=== PATIENT | male | born 2000 | race Caucasian/White ===

== ENCOUNTER 2020-07-02 06:13 | Inpatient (IN) ==
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
[2020-07-02 07:06] LABS: Hematocrit (blood only) 41.9 % (42-52); Hemoglobin 14.6 g/dL (14.0-18.0); Mean Corpuscular Hemoglobin 29.7 pg (25-34); Mean Corpuscular Hgb Conc 34.8 g/dL (32-36); Mean Corpuscular Volume 85.3 fL (80-100); Mean Platelet Volume 11.6 fL (7.4-10.4); Platelet Count 292 K/uL (130-400); RDW Coefficient of Variation 13.4 % (11.5-14.5); RDW Standard Deviation 41.9 fL (36.4-46.3); Red Blood Count 4.91 M/uL (4.7-6.1); White Blood Count 25.05 K/uL (4.8-10.8)
[2020-07-02 07:23] LABS: Albumin Level 4.1 gm/dl (3.4-5.0); BUN Creatinine Ratio 8.1 (10-20); Calcium 8.9 mg/dl (8.5-10.1); Creatinine Clr Calc Pharmacy 106.3 ml/min; Est GFR (African American) 100.3; Est GFR (Non-African American) 86.5; Potassium 3.6 mmol/L (3.5-5.1)
[2020-07-02 07:33] LABS: Albumin Globulin Ratio 1.2 (0.9-2); Bilirubin,Total 0.3 mg/dl (0.2-1); Globulin 3.3 gm/dl (2.5-4.0); Thyroid Stimulating Hormone 4.79 uIu/ml (0.300-4.500); Total Protein 7.4 gm/dl (6.4-8.2)
[2020-07-02 07:34] LABS: Basophils # (auto) 0.04 K/uL (0-0.2); Basophils % (auto) 0.2 %; Eosinophils # (auto) 0.05 K/uL (0-0.5); Eosinophils % (auto) 0.2 %; Immature Granulocytes # (auto) 0.08 K/uL (0.00-0.02); Immature Granulocytes % (auto) 0.3 %; Lymphocytes # (auto) 2.82 K/uL (1.2-3.4); Lymphocytes % (auto) 11.3 %; Monocytes # (auto) 1.91 K/uL (0.11-0.59); Monocytes % (auto) 7.6 %; Neutrophils # (auto) 20.15 K/uL (1.4-6.5); Neutrophils % (auto) 80.4 %
[2020-07-02 07:49] LABS: T4 Free Thyroxine 1.13 ng/dl (0.8-1.6)
[2020-07-02 08:15] LABS: Acetaminophen < 2 ug/ml (10-30); Salicylate < 1.7 mg/dl (2.8-20)
[2020-07-02 08:19] LABS: Appearance Urine Clear (Clear); Bilirubin Urine Negative (Negative); Blood Urine Negative (Negative); Color Urine Yellow; Glucose Urine UA Negative (Negative); Ketones Urine Negative (Negative); Leukocyte Esterase Urine Negative (Negative); Nitrite Urine Negative (Negative); Protein Urine Negative (Negative); Specific Gravity Urine 1.008 (1.000-1.030); Urobilinogen Urine Negative (Negative); pH Urine 6.5 (4.5-7.5)
[2020-07-02 08:36] LABS: Amphetamines+Metham, Urine Neg (Neg); Barbiturates, Urine Neg (Neg); Benzodiazepine, Urine Neg (Neg); Cocaine, Urine Neg (Neg); MDMA (Ecstacy), Urine Neg (Neg); Methadone, Urine Neg (Neg); Opiate, Urine Neg (Neg); Phencyclidine, Urine Neg (Neg)
[2020-07-02] MEDS ORDERED: MAGNESIUM HYDROXIDE SUSP 30 ML UDC PO PRN (14:40)
[2020-07-02] MEDS ORDERED: ACETAMINOPHEN 325 MG TAB PO PRN (14:40)
[2020-07-02] MEDS ORDERED: ALUMINUM/MAGNESIUM SUSP 30 ML UDC PO PRN (14:40)
[2020-07-02] MEDS ORDERED: BISMUTH SUBSALICYLATE LIQD 236 ML PO PRN (14:40)
[2020-07-02] MEDS ORDERED: hydrOXYzine HCl 25 MG TAB PO PRN ×2 (14:40)
[2020-07-02] MEDS ORDERED: SODIUM CHLORIDE 0.65% NA SOLN 45 ML (OCEAN) PRN (14:40)
--- NOTE | 2020-07-02 14:49 | History & Physical ---
Date of Service July 02, 2020 Impression / Recommendations Impression 20-year-old male admitted involuntarily on 07/02/2020 for inpatient psychiatric treatment after presenting to the ED via ambulance due to worsening depression and SI. Although the event prior to admission (patient had grabbed a pair of scissors while in front of friends and threatened to use them to kill himself), occurred while he was intoxicated - collateral information from mother suggested that the patient's depressive symptoms have been worsening and patient has been making suicidal statements over the past several months when sober as well. Pt has no psychiatric providers and had been unwilling to participate in outpatient treatment to target these concerns. Pt admits that he has been struggling with worsening depression, more significant in the past 1-2 years. He admits to daily SI, thoughts of "I want to end my life." He admits to willingness for an SSRI trial and was provided with information on sertraline and fluoxetine for his review - with patient requesting time to consider his options. Pt continues to endorse active SI and continues to be at acute risk of suicide if he is discharged prematurely. Dr. Chuck Castelan was directly involved in review and discussion of the patient's case and participated in medical decision making regarding treatment recommendations. (1) Suicidal ideations: 07/02 - Admitted to a locked inpatient behavioral health unit, on q15 minute safety checks - Encourage medication initiation/adjustments as indicated - Encourage participation in group and recreational therapies - Gather collateral information from outpatient providers - Suggest family meeting to involve outpatient supports in safety planning - Arrange appropriate aftercare (2) Depression: 07/02 - Symptoms reported by patient at this time seem most consistent with major depressive disorder. Differential includes substance-induced mood disorder, dysthymia, or possible bipolar disorder (only previous medication trial was a mood stabilization agent). Will continue to gather information from patient and outside supports - Pt was offered a trial of an SSRI to target depressive symptoms - sertraline and fluoxetine were reviewed and patient requested additional information before deciding on an agent. He was provided with patient education handouts and is agreeing to follow-up with a provider tomorrow. - Encourage engagement in group programming and assist with development of healthy and effective coping strategies - Pt will need a family meeting, likely involving his mother Depression Type: major depressive disorder Major depression recurrence: recurrent Active/Remission status: currently active Major depression episode severity: severe Psychotic features: without psychotic features Qualified Code(s): F33.2 - Major depressive disorder, recurrent severe without psychotic features (3) Cannabis abuse: 07/02 - Reporting use of marijuana several times a day - Consider outpatient D&A counseling Risk Factors Assessment Do You Have Access To A Gun?: No Protective Factors Assessment Employed: No Psychiatric History Identifying Data ANH PADILLA is a 20-year-old M who currently lives in [place] with roommates, family is from [place]. Pt has a history of depression, and was admitted on 07/02/2020 on a 302 involuntary commitment for worsening depression and suicidality. Chief Complaint "Um, I had scissors and told my friends I was going to slit my throat. I guess that's what happened." History of Present Illness Anh Padilla (DJ) is a 20-year-old male admitted involuntarily for inpatient psychiatric treatment on 07/02/2020 after being brought to the ED by EMS on a 302 warrant. Police were reportedly called to the patient's apartment after the patient had grabbed a pair of scissors and threatened to his friends that he would use them to slit his throat and end his life. ED documentation suggests the friends had gotten into an argument prior to these actions, and there was alcohol use involved. Pt's tox screen was positive for THC and his BAL was 194 on presentation, so patient was held in the ED until deemed clinically sober so that further evaluation could be completed and collateral information could be obtained. Mother provided reports of significant depression since "middle school" and admitted that patient is frequently reporting suicidal ideation, even when not intoxicated. She did not feel he was safe to be discharged. At time of mental health evaluation, the patient was continuing to endorse suicidal ideation and due to limited cooperation the 302 was reportedly upheld. 302 petitioning statement was completed by police and reads: "Patient had argument with friends and he felt that he wasn't wanted. Battles with history of depression. Patient felt like he did not want to live anymore. Patient grabbed a pair of scissors and told them he was going to kill himself. 911 was called. Officers arrived on scene and friends had male pinned to the floor. Male was hand cuffed. Told Officers to kill him and he wanted to . Male stated he had past history of suicide attempts and refused medication recommended by therapist. Males actions were violent and he appeared to have full intent to harm himself." Upon psychiatric evaluation, patient is very resistant to engage in conversation and appears very flat. Pt was observed to be laying in bed, and although he removed the blanket from his face he did not make eye contact. This provider attempted to ask questions for nearly 5 minutes before patient verbalized any audible response. Pt eventually was more willing to participate in conversation, and reported "Um, I had scissors and told my friends I was going to slit my throat. I guess that's what happened." Pt admitted that he had been drinking, but reported "I don't think it was so much the alcohol, I really felt like I wanted to hurt myself." Pt admits to increased depressive symptoms over the past 1-2 years, and states suicidal thoughts occur daily if not multiple times a day. We discussed the spectrum between passive and active thoughts, and patient was asked to describe the dialogue - "like, 'I want to end my life' thoughts." He admits that these thoughts can be triggered by difficult situations, but also "just pop up out of nowhere sometimes." The patient denies previous suicide attempts or acts of furtherance before last evening's events, but states he has a persistent plan to obtain "pain killers in combination with alcohol and benzodiazepines" to end his life. Pt denies immediate access to these substances, but states "I know how to get them." Pt reports persistently depressed mood, generally consistent for "weeks to months at a time." Depressive symptoms include: poor motivation, increased sleep, "negative thought loops", decreased appetite, anhedonia, and feeling "empty". The patient admits to a history of "really bad social anxiety", but feels that it is "not as bad as it used to be." Pt denies feeling the need to avoid leaving his apartment of other avoidance behaviors. Pt reports a history of panic attacks, but "none for years." Pt denies auditory/visual hallucinations, but does iden tify with "paranoia". He states "it feels like my friends are out to get me sometimes." He states this has only been a feeling more recently, and he does not elaborate on why this may be. Pt denies unhealthy eating behaviors, but does state "my mom thinks I have body dysmorphia". Pt, himself, feels he has "poor eating routine", but feels this is related primarily to his depressed mood. Pt admits to daily marijuana use and "binge drinking on weekends." He admits to an underage drinking charge from last fall. Pt reports a current significant stressor is that he was unable to enroll in classes for this semester due to a miscommunication regarding his remediation class related to the underage charge. Pt states that he withdrew from last semester due to mental health concerns, and was told he could complete the assignments with his outpatient therapist - but the [facility] did not accept the letter "and my account was flagged and I couldn't sign up for classes." Pt states that he is willing to discuss medications that could improve his mood, but is interested in reviewing information before making a decision. Past Psychiatric History Current Psychiatric Diagnosis: MDD Outpatient Services: Pt had been participating with individual therapy this summer in [place]. Previous Psych Admissions: None Do You Have Access To A Gun?: No History of Previous Suicide Attempt: No Describe Attempts in the Past: Denies Past Medication Trials: Per patient report, only previous medication trial was 1-2 month titration of lamotrigine. Medication was discontinued by the patient due to reports in caused him to feel "numb." Past Head Trauma/Neuro History History of Concussion/Seizure: No Allergies Allergy/AdvReac Type Severity Reaction Status Date / Time CAT DANDER Allergy Intermediate ITCHY Uncoded 07/02/20 06:47 EYES, SNEEZING, CONGESTION HAYFEVER Allergy Intermediate ITCHY Uncoded 07/02/20 06:47 EYES, SNEEZING, CONGESTION Home Medications Medication Instructions Recorded Confirmed Type No Known Home Medications 07/02/20 07/02/20 History Family History Family History of: Depression (on paternal side of family), Alcoholism/Drug Abuse ("my whole family is alcoholics, on both sides") and Suicide Completion (maternal great uncle, "maybe others, I don't know") Alcohol History Hx of Alcohol Use Over the Past 12 Months: Yes (4x weekly) Pt admits to binge drinking, generally only on the weekends. He endorses consuming 8-10 beers a night on days he partakes. Pt states this amount is sufficient to cause him to feel "drunk." He admits to receiving an underage drinking charge last Fall. Smoking Use tobacco type: cigarettes and e-cigarettes Smoking Status: Current every day smoker (unable to quantify amount ) Substance History Hx of Prescription Med Misuse Over the Past 12 Months: No Hx of Over the Counter Med Misuse Over the Past 12 Months: No Hx of Inhalent Misuse Over the Past 12 Months: No Hx of Organic Substance Use Over the Past 12 Months: Yes (Daily) Hx of Illegal Substances/Street Drug Use Over Past 12 Months: No Problems as a Result of Past Substance Use: None Identified Pt admits to daily marijuana use, often several times a day. Denies routine use of other substances, but admits to experimentation in the past with Adderall, Xanax, Oxycodone, LSD, and PCP. Personal History Living Arrangements: Apartment Living Arrangements Comments: Resides in [place] when not on campus Highest Grade Completed: Some College Employment Status: Unemployed (un-enrolled in classes at this time as well) Marital Status: Single Number Of Children: None Beliefs That Will Affect Care: None Current Legal Problems: Yes Legal Problems Comment: Underage drinking - still has to complete remediation course through [employer] Hx Traumatic Life Events: No Patient History Social History Smoking Status: Current every day smoker (unable to quantify amount ) Preferred Language: Faroese Communication Ability: Effective Scheduler Required: No Beliefs That Will Affect Care: None Feels Safe at Home: Yes Assistive Devices: None Review of Systems Review of Systems: Constitutional: denied Cardiovascular: denied Respiratory: denied Gastrointestinal: denied Neurological: denied Psychiatric: denies symptoms other than stated above Total of at least 10 systems reviewed, pertinent positives as above and in HPI. Physical Exam Psychiatric: Orientation: alert, oriented x 3 and + guarded (only superficially cooperative ) Apperance: appropriately dressed, appropriately groomed and appeared stated age Thin-appearing male, laying in bed initially with blanket covering his face. Pt is appropriately dressed for setting, wearing scrubs from the ED. His hair appears mildly unkempt. Overall level of grooming seems adequate. Eye Contact: + poor eye contact (eyes either closed or directed toward ceiling for most of interview) Motor Behavior: no abnormal motor movements (observed while laying in bed) Speech: normal rate/rhythm/volume of speech (though offering rather brief repsonses to questions) Affect: + depressed affect, + flat affect and mood congruent with affect Mood: + depressed mood; no anxious mood Thought Process: goal directed thought process and thought association intact Thought Content: + cognitive distortions, + hopelessness and + worthlessness Suicidal Thoughts: + reports suicidal thoughts Homicidal Thoughts: denies homicidal thoughts Hallucinations: no auditory hallucinations and no visual hallucinations Cognition: recent memory grossly intact, attention grossly intact and language grossly intact Estimated Intelligence: consistent with education level Insight: + impaired insight Judgement: + fair judgement Vital Signs (Past 24 Hours): Last Vital Signs Temp 36.7 C 07/02/20 06:19 Pulse 74 07/02/20 13:49 Resp 17 07/02/20 13:49 BP 102/54 L 07/02/20 13:49 Pulse Ox 98 07/02/20 13:49 Exam Statement: A physical exam was performed in the ER prior to admission to the unit by Dr. Brent Mackay DO. I accept that physical as correct/medical clearance for the inpatient physical exam. Results & Data ([facility]) Laboratory Results Laboratory Results - last 24 hr 07/02/20 07/02/20 07/02/20 06:49 06:49 06:49 WBC 25.05 H RBC 4.91 Hgb 14.6 Hct 41.9 L MCV 85.3 MCH 29.7 MCHC 34.8 RDW Std Deviation 41.9 RDW Coeff of Luna 13.4 Plt Count 292 MPV 11.6 H Immature Gran % (Auto) 0.3 Neut % (Auto) 80.4 Lymph % (Auto) 11.3 Baxter % (Auto) 7.6 Eos % (Auto) 0.2 Baso % (Auto) 0.2 Neut # (Auto) 20.15 H Lymph # (Auto) 2.82 Baxter # (Auto) 1.91 H Eos # (Auto) 0.05 Baso # (Auto) 0.04 Immature Gran # (Auto) 0.08 H Sodium 138 Potassium 3.6 Chloride 105 Carbon Dioxide 20 L Anion Gap 13.0 H BUN 10 Creatinine 1.20 Est Cr Clr Drug Dosing 106.3 Est GFR ( Amer) 100.3 Est GFR (Non-Af Amer) 86.5 BUN/Creatinine Ratio 8.1 L Glucose 90 Calcium 8.9 Total Bilirubin 0.3 AST 17 ALT 27 Alkaline Phosphatase 68 Total Protein 7.4 Albumin 4.1 Globulin 3.3 Albumin/Globulin Ratio 1.2 TSH 4.790 H Free T4 1.13 Urine Color Urine Appearance Urine pH Ur Specific [place] Urine Protein Urine Glucose (UA) Urine Ketones Urine Blood Urine Nitrite Urine Bilirubin Urine Urobilinogen Ur Leukocyte Esterase Salicylates < 1.7 L Urine Opiates Screen Ur Methadone, Qual Acetaminophen < 2 L Urine Barbiturates Ur Phencyclidine (PCP) U Amphetamin/Meth Scrn MDMA (Ecstasy) Screen U Benzodiazepines Scrn Ur Cocaine Metabolite U Marijuana (THC) Screen U Marijuana THC Carboxy Drug Screen Comment Ethyl Alcohol mg/dL SARS-CoV-2 Ag (Rapid) 07/02/20 07/02/20 07/02/20 06:49 07:31 07:45 WBC RBC Hgb Hct MCV MCH MCHC RDW Std Deviation RDW Coeff of Luna Plt Count MPV Immature Gran % (Auto) Neut % (Auto) Lymph % (Auto) Baxter % (Auto) Eos % (Auto) Baso % (Auto) Neut # (Auto) Lymph # (Auto) Baxter # (Auto) Eos # (Auto) Baso # (Auto) Immature Gran # (Auto) Sodium Potassium Chloride Carbon Dioxide Anion Gap BUN Creatinine Est Cr Clr Drug Dosing Est GFR ( Amer) Est GFR (Non-Af Amer) BUN/Creatinine Ratio Glucose Calcium Total Bilirubin AST ALT Alkaline Phosphatase Total Protein Albumin Globulin Albumin/Globulin Ratio TSH Free T4 Urine Color Yellow Urine Appearance Clear Urine pH 6.5 Ur Specific Ed[place] 1.008 Urine Protein Negative Urine Glucose (UA) Negative Urine Ketones Negative Urine Blood Negative Urine Nitrite Negative Urine Bilirubin Negative Urine Urobilinogen Negative Ur Leukocyte Esterase Negative Salicylates Urine Opiates Screen Ur Methadone, Qual Acetaminophen Urine Barbiturates Ur Phencyclidine (PCP) U Amphetamin/Meth Scrn MDMA (Ecstasy) Screen U Benzodiazepines Scrn Ur Cocaine Metabolite U Marijuana (THC) Screen U Marijuana THC Carboxy Drug Screen Comment Ethyl Alcohol mg/dL 194.0 H SARS-CoV-2 Ag (Rapid) Negative 07/02/20 07/02/20 07:45 07:45 WBC RBC Hgb Hct MCV MCH MCHC RDW Std Deviation RDW Coeff of Luna Plt Count MPV Immature Gran % (Auto) Neut % (Auto) Lymph % (Auto) Baxter % (Auto) Eos % (Auto) Baso % (Auto) Neut # (Auto) Lymph # (Auto) Baxter # (Auto) Eos # (Auto) Baso # (Auto) Immature Gran # (Auto) Sodium Potassium Chloride Carbon Dioxide Anion Gap BUN Creatinine Est Cr Clr Drug Dosing Est GFR ( Amer) Est GFR (Non-Af Amer) BUN/Creatinine Ratio Glucose Calcium Total Bilirubin AST ALT Alkaline Phosphatase Total Protein Albumin Globulin Albumin/Globulin Ratio TSH Free T4 Urine Color Urine Appearance Urine pH Ur Specific [place] Urine Protein Urine Glucose (UA) Urine Ketones Urine Blood Urine Nitrite Urine Bilirubin Urine Urobilinogen Ur Leukocyte Esterase Salicylates Urine Opiates Screen Neg Ur Methadone, Qual Neg Acetaminophen Urine Barbiturates Neg Ur Phencyclidine (PCP) Neg U Amphetamin/Meth Scrn Neg MDMA (Ecstasy) Screen Neg U Benzodiazepines Scrn Neg Ur Cocaine Metabolite Neg U Marijuana (THC) Screen Pos H U Marijuana THC Carboxy Pending Drug Screen Comment Pending Ethyl Alcohol mg/dL SARS-CoV-2 Ag (Rapid)
--- NOTE | 2020-07-03 07:48 | Psychiatric Progress Note ---
Date of Service July 03, 2020 Impression / Recommendations Impression 20-year-old male admitted involuntarily on 07/02/2020 for inpatient psychiatric treatment after presenting to the ED via ambulance due to worsening depression and SI. Although the event prior to admission (patient had grabbed a pair of scissors while in front of friends and threatened to use them to kill himself), occurred while he was intoxicated, collateral information from mother revealed that the patient's depressive symptoms have been worsening and patient has been making suicidal statements over the past several months when sober as well. He has no psychiatric providers and had been unwilling to participate in outpatient treatment, but is now agreeing to an SSRI and outpatient referrals. He remains at risk of suicide if he is discharged prematurely. (1) Suicidal ideations: 07/02 - Admitted to a locked inpatient behavioral health unit, on q15 minute safety checks - Encourage medication initiation/adjustments as indicated - Encourage participation in group and recreational therapies - Gather collateral information from outpatient providers - Suggest family meeting to involve outpatient supports in safety planning - Arrange appropriate aftercare (2) Depression: 07/02 - Symptoms reported by patient at this time seem most consistent with major depressive disorder. Differential includes substance-induced mood disorder, dysthymia, or possible bipolar disorder (only previous medication trial was a mood stabilization agent). Will continue to gather information from patient and outside supports - Pt was offered a trial of an SSRI to target depressive symptoms - sertraline and fluoxetine were reviewed and patient requested additional information before deciding on an agent. He was provided with patient education handouts and is agreeing to follow-up with a provider tomorrow. - Encourage engagement in group programming and assist with development of healthy and effective coping strategies - Pt will need a family meeting, likely involving his mother 07/03 -Again reviewed diagnosis and treatment recommendations, discussed multiple SSRIs including risks, benefits, and side effects,, he ultimately agreed to a trial of sertraline. Start 25 mg daily, increase to 50 mg daily tomorrow. -Family meeting with mother scheduled for tomorrow. (3) Cannabis abuse: 07/02 - Reporting use of marijuana several times a day - Consider outpatient D&A counseling Risk Factors Assessment Male: Yes : Yes Do You Have Access To A Gun?: No Health Problems: No Mental Health Diagnoses: Yes Substance Use Disorders: Yes Previous Attempt: No Family History of Suicide: Yes Previous Psychiatric Hospitalization: No Hopelessness: Yes Smoker: Yes Protective Factors Assessment Protestant Beliefs: No : No Responsible for Young Children: No Employed: No Stable Relationships: Yes Supportive Family: Yes Good Rapport with Provider: No Interval History Identifying Information ANH DALE is a 20-year-old M who currently lives in [place] with roommates, family is from [place]. Pt has a history of depression, and was admitted on 07/02/2020 on a 302 involuntary commitment for worsening depression and suicidality. Chief Complaint "Not too bad". Review of Systems Sleep Information Total Hours of Sleep: 6.5 Sleep Comments: pt appeared to sleep 2 hrs during evening shift. pt on q-15 minute checks Subjective Subjective Patient was seen & assessed and interval progress reviewed with nursing and social work. Staff report he has been out of his room going to groups today. He reports mood is a bit better than yesterday and he denies SI, feels safe here. He continues to have difficulty making decisions, isn't sure which antidepressant he wants to try or where he will go at discharge, stating neither option is great and both have pros/cons. He has been talking to his mother, and agreed to a family reunion. Discussed medications and he ultimately decided on sertraline. Physical Exam Psychiatric Orientation: alert and cooperative Apperance: appropriately dressed, appropriately groomed and appeared stated age Eye Contact: + fair eye contact Motor Behavior: steady gait and station and no abnormal motor movements Speech: normal rate/rhythm/volume of speech Affect: + depressed affect, + constricted affect and mood congruent with affect Mood: + depressed mood Thought Process: goal directed thought process Thought Content: reality based without delusions Suicidal Thoughts: denies suicidal thoughts Homicidal Thoughts: denies homicidal thoughts Hallucinations: no auditory hallucinations Cognition: recent memory grossly intact, attention grossly intact and language grossly intact Estimated Intelligence: consistent with education level Insight: + fair insight Judgement: + fair judgement Vital Signs (Past 24 Hours) Last Vital Signs Temp 36.4 C L 07/03/20 06:43 Pulse 80 07/03/20 06:43 Resp 16 07/03/20 06:43 BP 113/65 07/03/20 06:43 Pulse Ox 98 07/02/20 13:49 Results & Data ([facility]) Laboratory Results Laboratory Results - last 24 hr 07/02/20 07/02/2021 06:49 06:49 07:31 Free T4 1.13 Urine Color Urine Appearance Urine pH Ur Specific [place] Urine Protein Urine Glucose (UA) Urine Ketones Urine Blood Urine Nitrite Urine Bilirubin Urine Urobilinogen Ur Leukocyte Esterase Salicylates < 1.7 L Urine Opiates Screen Ur Methadone, Qual Acetaminophen < 2 L Urine Barbiturates Ur Phencyclidine (PCP) U Amphetamin/Meth Scrn MDMA (Ecstasy) Screen U Benzodiazepines Scrn Ur Cocaine Metabolite U Marijuana (THC) Screen U Marijuana THC Carboxy Drug Screen Comment SARS-CoV-2 Ag (Rapid) Negative 07/02/20 07/02/20 07/02/20 07:45 07:45 07:45 Free T4 Urine Color Yellow Urine Appearance Clear Urine pH 6.5 Ur Specific [place] 1.008 Urine Protein Negative Urine Glucose (UA) Negative Urine Ketones Negative Urine Blood Negative Urine Nitrite Negative Urine Bilirubin Negative Urine Urobilinogen Negative Ur Leukocyte Esterase Negative Salicylates Urine Opiates Screen Neg Ur Methadone, Qual Neg Acetaminophen Urine Barbiturates Neg Ur Phencyclidine (PCP) Neg U Amphetamin/Meth Scrn Neg MDMA (Ecstasy) Screen Neg U Benzodiazepines Scrn Neg Ur Cocaine Metabolite Neg U Marijuana (THC) Screen Pos H U Marijuana THC Carboxy Pending Drug Screen Comment Pending SARS-CoV-2 Ag (Rapid) Current Inpatient Medications Current Inpatient Medications: Current Inpatient Medications Acetaminophen (Acetaminophen 325 Mg Tab) 650 mg PO Q4H PRN PRN Reason: Headache or Minor Fever Stop: 08/01/20 14:39 Al Hydrox/Mg Hydrox/Simethicone (Aluminum/Magnesium Susp 30 Ml Udc) 30 ml PO Q4H PRN PRN Reason: GI Upset Stop: 08/01/20 14:39 Bismuth Subsalicylate (Bismuth Subsalicylate Liqd 236 Ml) 15 ml PO PRN PRN PRN Reason: Loose Stool Stop: 08/01/20 14:39 Hydroxyzine HCl (Hydroxyzine Hcl 25 Mg Tab) 50 mg PO HSZ PRN PRN Reason: Insomnia Stop: 08/01/20 14:39 Hydroxyzine HCl (Hydroxyzine Hcl 25 Mg Tab) 25 mg PO Q4H PRN PRN Reason: Anxiety Stop: 08/01/20 14:39 Magnesium Hydroxide (Magnesium Hydroxide Susp 30 Ml Udc) 30 ml PO DAILY PRN PRN Reason: Constipation Stop: 08/01/20 14:39 Sodium Chloride (Sodium Chloride 0.65% Na Soln 45 Ml ([facility])) 1 - 2 sprays NA PRN PRN PRN Reason: Nasal Dryness/Congestion Stop: 08/01/20 14:39 (1) Depression Active/Remission status: currently active Depression Type: major depressive disorder Major depression episode severity: severe Major depression recurrence: recurrent Psychotic features: without psychotic features Qualified Code(s): F33.2 - Major depressive disorder, recurrent severe without psychotic features
[2020-07-03] MEDS ORDERED: SERTRALINE HCL 50 MG TABLET PO ONE (11:40)
--- NOTE | 2020-07-04 06:34 | Psychiatric Progress Note ---
Date of Service July 04, 2020 Impression / Recommendations Impression 20-year-old male admitted involuntarily on 07/02/2020 for inpatient psychiatric treatment after presenting to the ED via ambulance due to worsening depression and SI. Although the event prior to admission (patient had grabbed a pair of scissors while in front of friends and threatened to use them to kill himself), occurred while he was intoxicated, collateral information from mother revealed that the patient's depressive symptoms have been worsening and patient has been making suicidal statements over the past several months when sober as well. He has no psychiatric providers and had been unwilling to participate in outpatient treatment, but is now agreeing to an SSRI and outpatient referrals. He remains at risk of suicide if he is discharged prematurely. (1) Suicidal ideations: 07/02 - Admitted to a locked inpatient behavioral health unit, on q15 minute safety checks - Encourage medication initiation/adjustments as indicated - Encourage participation in group and recreational therapies - Gather collateral information from outpatient providers - Suggest family meeting to involve outpatient supports in safety planning - Arrange appropriate aftercare 07/04 -Family meeting with child welfare social worker and parents today. Patient trying to decide whether to remain in [place] or return home to [place]. (2) Depression: 07/02 - Symptoms reported by patient at this time seem most consistent with major depressive disorder. Differential includes substance-induced mood disorder, dysthymia, or possible bipolar disorder (only previous medication trial was a mood stabilization agent). Will continue to gather information from patient and outside supports - Pt was offered a trial of an SSRI to target depressive symptoms - sertraline and fluoxetine were reviewed and patient requested additional information before deciding on an agent. He was provided with patient education handouts and is agreeing to follow-up with a provider tomorrow. - Encourage engagement in group programming and assist with development of healthy and effective coping strategies - Pt will need a family meeting, likely involving his mother 07/03 -Again reviewed diagnosis and treatment recommendations, discussed multiple SSRIs including risks, benefits, and side effects,, he ultimately agreed to a trial of sertraline. Start 25 mg daily, increase to 50 mg daily tomorrow. -Family meeting with mother scheduled for tomorrow. 07/04 -Increase sertraline to 50 mg daily. He will need referral for outpatient treatment either here or in [place], depending on where he decides to live after discharge. (3) Cannabis abuse: 07/02 - Reporting use of marijuana several times a day - Consider outpatient D&A counseling 07/04 -To be referred for dual diagnosis outpatient treatment once we know where he will be living. -Continue recovery protocol. Risk Factors Assessment Male: Yes : Yes Do You Have Access To A Gun?: No Health Problems: No Mental Health Diagnoses: Yes Substance Use Disorders: Yes Previous Attempt: No Family History of Suicide: Yes Previous Psychiatric Hospitalization: No Hopelessness: Yes Smoker: Yes Protective Factors Assessment Islam Beliefs: No : No Responsible for Young Children: No Employed: No Stable Relationships: Yes Supportive Family: Yes Good Rapport with Provider: No Interval History Identifying Information ANH DALE is a 20-year-old M who currently lives in [place] with roommates, family is from [place]. Pt has a history of depression, and was admitted on 07/02/2020 on a 302 involuntary commitment for worsening depression and suicidality. Chief Complaint "Tired". Review of Systems Sleep Information Total Hours of Sleep: 6.5 Sleep Comments: pt appeared to sleep 2 hrs during evening shift. pt on q-15 minute checks Meal Information Percent Meal Consumed - Breakfast: 75 Percent Meal Consumed - Lunch: 75 Percent Meal Consumed - Dinner: 95 Subjective Subjective Patient was seen & assessed and interval progress reviewed with nursing and social work. Staff report he attended and participated in groups yesterday, rated his mood a 5/10 and reported feeling bored. In group about recovery, he reported more significant alcohol use than he'd previously reported, up to 20 drinks, with blackouts. He socialized with peers during free time. This morning, he was seen in his room where he is still in bed. He reports he slept poorly and is very sleepy today, skipped breakfast, but agrees to get up for his family meeting later this morning. He continues to report depression, but denies SI and feels safe here. Physical Exam Psychiatric Orientation: alert and cooperative Apperance: + disheveled and appeared stated age Eye Contact: + poor eye contact Motor Behavior: no abnormal motor movements Speech: normal rate/rhythm/volume of speech Affect: + depressed affect, + constricted affect and mood congruent with affect Mood: + depressed mood Thought Process: goal directed thought process Thought Content: reality based without delusions Suicidal Thoughts: denies suicidal thoughts Homicidal Thoughts: denies homicidal thoughts Hallucinations: no auditory hallucinations Cognition: recent memory grossly intact and attention grossly intact Insight: + fair insight Judgement: + fair judgement Vital Signs (Past 24 Hours) Last Vital Signs Temp 36.9 C 07/03/20 20:29 Pulse 80 07/03/20 06:43 Resp 16 07/03/20 06:43 BP 113/65 07/03/20 06:43 Pulse Ox 98 07/02/20 13:49 Results & Data ([facility]) Current Inpatient Medications Current Inpatient Medications: Current Inpatient Medications Acetaminophen (Acetaminophen 325 Mg Tab) 650 mg PO Q4H PRN PRN Reason: Headache or Minor Fever Stop: 08/01/20 14:39 Al Hydrox/Mg Hydrox/Simethicone (Aluminum/Magnesium Susp 30 Ml Udc) 30 ml PO Q4H PRN PRN Reason: GI Upset Stop: 08/01/20 14:39 Bismuth Subsalicylate (Bismuth Subsalicylate Liqd 236 Ml) 15 ml PO PRN PRN PRN Reason: Loose Stool Stop: 08/01/20 14:39 Hydroxyzine HCl (Hydroxyzine Hcl 25 Mg Tab) 50 mg PO HSZ PRN PRN Reason: Insomnia Stop: 08/01/20 14:39 Hydroxyzine HCl (Hydroxyzine Hcl 25 Mg Tab) 25 mg PO Q4H PRN PRN Reason: Anxiety Stop: 08/01/20 14:39 Magnesium Hydroxide (Magnesium Hydroxide Susp 30 Ml Udc) 30 ml PO DAILY PRN PRN Reason: Constipation Stop: 08/01/20 14:39 Sertraline HCl (Sertraline Hcl 50 Mg Tablet) 50 mg PO QAM MARIA TERESA Stop: 08/03/20 08:59 Sodium Chloride (Sodium Chloride 0.65% Na Soln 45 Ml ([place])) 1 - 2 sprays NA PRN PRN PRN Reason: Nasal Dryness/Congestion Stop: 08/01/20 14:39 Mental Health & Subst Abuse Tx Desktop Operator Name of Desktop Operator: Tierney Curry from [facility] Post Discharge Appointments Primary Care Physician Name Of Family Doctor: Dr. Chuck Chilel [place] (1) Depression Active/Remission status: currently active Depression Type: major depressive disorder Major depression episode severity: severe Major depression recurrence: recurrent Psychotic features: without psychotic features Qualified Code(s): F33.2 - Major depressive disorder, recurrent severe without psychotic features
[2020-07-04] MEDS: SERTRALINE HCL 50 MG TABLET PO SCH (11:36)
[2020-07-04 23:41] LABS: Marijuana Quant, GCMS Urine 284 ng/mL (<5)
[2020-07-05] MEDS: SERTRALINE HCL 50 MG TABLET PO SCH (09:11)
--- NOTE | 2020-07-05 09:21 | Psychiatric Progress Note ---
Date of Service July 05, 2020 Impression / Recommendations Impression 20-year-old male admitted involuntarily on 07/02/2020 for inpatient psychiatric treatment after presenting to the ED via ambulance due to worsening depression and SI. Although the event prior to admission (patient had grabbed a pair of scissors while in front of friends and threatened to use them to kill himself), occurred while he was intoxicated, collateral information from mother revealed that the patient's depressive symptoms have been worsening and patient has been making suicidal statements over the past several months when sober as well. He has no psychiatric providers and had been unwilling to participate in outpatient treatment, but is now agreeing to an SSRI and outpatient referrals. He remains at risk of suicide if he is discharged prematurely. (1) Suicidal ideations: 07/02 - Admitted to a locked inpatient behavioral health unit, on q15 minute safety checks - Encourage medication initiation/adjustments as indicated - Encourage participation in group and recreational therapies - Gather collateral information from outpatient providers - Suggest family meeting to involve outpatient supports in safety planning - Arrange appropriate aftercare 07/04 -Family meeting with social work case manager and parents today. Patient trying to decide whether to remain in [place] or return home to [place]. (2) Depression: 07/02 - Symptoms reported by patient at this time seem most consistent with major depressive disorder. Differential includes substance-induced mood disorder, dysthymia, or possible bipolar disorder (only previous medication trial was a mood stabilization agent). Will continue to gather information from patient and outside supports - Pt was offered a trial of an SSRI to target depressive symptoms - sertraline and fluoxetine were reviewed and patient requested additional information before deciding on an agent. He was provided with patient education handouts and is agreeing to follow-up with a provider tomorrow. - Encourage engagement in group programming and assist with development of healthy and effective coping strategies - Pt will need a family meeting, likely involving his mother 07/03 -Again reviewed diagnosis and treatment recommendations, discussed multiple SSRIs including risks, benefits, and side effects, he ultimately agreed to a trial of sertraline. Start 25 mg daily, increase to 50 mg daily tomorrow. -Family meeting with mother scheduled for tomorrow. 07/04 -Increase sertraline to 50 mg daily. He will need referral for outpatient treatment either here or in [place], depending on where he decides to live after discharge. (3) Cannabis abuse: 07/02 - Reporting use of marijuana several times a day - Consider outpatient D&A counseling 07/04 -To be referred for dual diagnosis outpatient treatment once we know where he will be living. -Continue recovery protocol. Risk Factors Assessment Male: Yes : Yes Do You Have Access To A Gun?: No Health Problems: No Mental Health Diagnoses: Yes Substance Use Disorders: Yes Previous Attempt: No Family History of Suicide: Yes Previous Psychiatric Hospitalization: No Hopelessness: Yes Smoker: Yes Protective Factors Assessment Zoroastrian Beliefs: No : No Responsible for Young Children: No Employed: No Stable Relationships: Yes Supportive Family: Yes Good Rapport with Provider: No Interval History Identifying Information AHN DALE is a 20-year-old M who currently lives in [place] with roommates, family is from [place]. Pt has a history of depression, and was admitted on 07/02/2020 on a 302 involuntary commitment for worsening depression and suicidality. Chief Complaint "[]". Review of Systems Sleep Information Total Hours of Sleep: 7.25 Sleep Comments: pt on q-15 minute checks Meal Information Percent Meal Consumed - Breakfast: 75 Percent Meal Consumed - Lunch: 100 Percent Meal Consumed - Dinner: 100 Subjective Subjective Patient was seen & assessed and interval progress reviewed with [treatment team] [nursing and social work] Physical Exam Vital Signs (Past 24 Hours) Last Vital Signs Temp 36.6 C 07/05/20 06:40 Pulse 72 07/05/20 06:41 Resp 16 07/05/20 06:40 BP 129/64 07/05/20 06:41 Pulse Ox 98 07/02/20 13:49 Results & Data ([facility]) Laboratory Results Laboratory Results - last 24 hr 07/02/20 07:45 U Marijuana THC Carboxy 284 H Drug Screen Comment SEE NOTE Current Inpatient Medications Current Inpatient Medications: Current Inpatient Medications Acetaminophen (Acetaminophen 325 Mg Tab) 650 mg PO Q4H PRN PRN Reason: Headache or Minor Fever Stop: 08/01/20 14:39 Al Hydrox/Mg Hydrox/Simethicone (Aluminum/Magnesium Susp 30 Ml Udc) 30 ml PO Q4H PRN PRN Reason: GI Upset Stop: 08/01/20 14:39 Bismuth Subsalicylate (Bismuth Subsalicylate Liqd 236 Ml) 15 ml PO PRN PRN PRN Reason: Loose Stool Stop: 08/01/20 14:39 Hydroxyzine HCl (Hydroxyzine Hcl 25 Mg Tab) 50 mg PO HSZ PRN PRN Reason: Insomnia Stop: 08/01/20 14:39 Hydroxyzine HCl (Hydroxyzine Hcl 25 Mg Tab) 25 mg PO Q4H PRN PRN Reason: Anxiety Stop: 08/01/20 14:39 Magnesium Hydroxide (Magnesium Hydroxide Susp 30 Ml Udc) 30 ml PO DAILY PRN PRN Reason: Constipation Stop: 08/01/20 14:39 Sertraline HCl (Sertraline Hcl 50 Mg Tablet) 50 mg PO QAM MARIA TERESA Stop: 08/03/20 08:59 Last Admin: 07/05/20 09:11 Dose: 50 mg Documented by: Sodium Chloride (Sodium Chloride 0.65% Na Soln 45 Ml ([place])) 1 - 2 sprays NA PRN PRN PRN Reason: Nasal Dryness/Congestion Stop: 08/01/20 14:39 Mental Health & Subst Abuse Tx Dye Stand Loader Name of Dye Stand Loader: Tierney Curry from [facility] Post Discharge Appointments Primary Care Physician Name Of Family Doctor: Dr. Chuck Chilel [place] (1) Depression Depression Type: major depressive disorder Major depression recurrence: re current Active/Remission status: currently active Major depression episode severity: severe Psychotic features: without psychotic features Qualified Code(s): F33.2 - Major depressive disorder, recurrent severe without psychotic features
--- NOTE | 2020-07-05 10:36 | Psychiatric Progress Note ---
Date of Service July 05, 2020 Impression / Recommendations Impression 20-year-old male admitted involuntarily on 07/02/2020 for inpatient psychiatric treatment after presenting to the ED via ambulance due to worsening depression and SI. Although the event prior to admission (patient grabbed a pair of scissors in front of friends and threatened to use them to kill himself), occurred while he was intoxicated, collateral information from mother revealed that the patient's depressive symptoms have been worsening and patient has been making suicidal statements over the past several months when sober as well. He has no psychiatric providers and had been unwilling to participate in outpatient treatment, but is now agreeing to an SSRI and outpatient referrals. He remains at risk of suicide if he is discharged prematurely. (1) Suicidal ideations: 07/02 - Admitted to a locked inpatient behavioral health unit, on q15 minute safety checks - Encourage medication initiation/adjustments as indicated - Encourage participation in group and recreational therapies - Gather collateral information from outpatient providers - Suggest family meeting to involve outpatient supports in safety planning - Arrange appropriate aftercare 07/04 -Family meeting with transition social worker and parents today. Patient trying to decide whether to remain in [place] or return home to [place]. 07/05 -Patient and his family have decided that he will stay in [place], they are arranging local aftercare. (2) Depression: 07/02 - Symptoms reported by patient at this time seem most consistent with major depressive disorder. Differential includes substance-induced mood disorder, dysthymia, or possible bipolar disorder (only previous medication trial was a mood stabilization agent). Will continue to gather information from patient and outside supports - Pt was offered a trial of an SSRI to target depressive symptoms - sertraline and fluoxetine were reviewed and patient requested additional info rmation before deciding on an agent. He was provided with patient education handouts and is agreeing to follow-up with a provider tomorrow. - Encourage engagement in group programming and assist with development of healthy and effective coping strategies - Pt will need a family meeting, likely involving his mother 07/03 -Again reviewed diagnosis and treatment recommendations, discussed multiple SSRIs including risks, benefits, and side effects, he ultimately agreed to a trial of sertraline. Start 25 mg daily, increase to 50 mg daily tomorrow. -Family meeting with mother scheduled for tomorrow. 07/04 -Increase sertraline to 50 mg daily. He will need referral for outpatient treatment either here or in [place], depending on where he decides to live after discharge. 07/05 -Increase sertraline to 75 mg daily. Referred to [facility] with intake 07/08/2020, and referred to [facility] for medication management. -Continue to work on healthy coping skills, ways to increase daily structure, and discharge safety plan. (3) Cannabis abuse: 07/02 - Reporting use of marijuana several times a day - Consider outpatient D&A counseling 07/04 -To be referred for dual diagnosis outpatient treatment once we know where he will be living. -Continue recovery protocol. 07/05 -Patient plans to stay in [place], referred to [facility] for dual diagnosis therapy. Risk Factors Assessment Male: Yes : Yes Do You Have Access To A Gun?: No Health Problems: No Mental Health Diagnoses: Yes Substance Use Disorders: Yes Previous Attempt: No Family History of Suicide: Yes Previous Psychiatric Hospitalization: No Hopelessness: Yes Smoker: Yes Protective Factors Assessment Jainism Beliefs: No : No Responsible for Young Children: No Employed: No Stable Relationships: Yes Supportive Family: Yes Good Rapport with Provider: No Interval History Identifying Information ANH DALE is a 20-year-old M who currently lives in [place] with roommates, family is from [place]. Pt has a history of depression, and was admitted on 07/02/2020 on a 302 involuntary commitment for worsening depression and suicidality. Chief Complaint "Okay". Review of Systems Sleep Information Total Hours of Sleep: 7.25 Sleep Comments: pt on q-15 minute checks Meal Information Percent Meal Consumed - Breakfast: 75 Percent Meal Consumed - Lunch: 100 Percent Meal Consumed - Dinner: 100 Subjective Subjective Patient was seen & assessed and interval progress reviewed with treatment team. Staff report he had a good family meeting with his parents yesterday, who were supportive and they processed his options after discharge. He decided to stay in [place] and get treatment here, with a plan to return to [place] if he can't maintain sobriety. Today he reports he slept poorly, had stomach upset this morning, but felt better after eating. He reports cravings for nicotine, stating he feels he has withdrawal when he stops. He would like to cut back but not quit. Mood continues to improve, rates it a 7/10, and denies SI. He continues to have negative thoughts about himself, "it's like a habit at this point." He notes exercise is very helpful for him with respect to mood, was a swimmer, but hasn't been swimming for the past couple of years. Physical Exam Psychiatric Orientation: alert and cooperative Apperance: appropriately dressed, appropriately groomed and appeared stated age Eye Contact: + fair eye contact Motor Behavior: steady gait and station and no abnormal motor movements Speech: normal rate/rhythm/volume of speech depressed but brightens appropriately at times "Getting better." Thought Process: goal directed thought process Thought Content: + cognitive distortions Suicidal Thoughts: denies suicidal thoughts Homicidal Thoughts: denies homicidal thoughts Hallucinations: no auditory hallucinations Cognition: recent memory grossly intact, attention grossly intact and language grossly intact Estimated Intelligence: consistent with education level Insight: + fair insight Judgement: + fair judgement Vital Signs (Past 24 Hours) Last Vital Signs Temp 36.6 C 07/05/20 06:40 Pulse 72 07/05/20 06:41 Resp 16 07/05/20 06:40 BP 129/64 07/05/20 06:41 Pulse Ox 98 07/02/20 13:49 Results & Data ([facility]) Laboratory Results Laboratory Results - last 24 hr 07/02/20 07:45 U Marijuana THC Carboxy 284 H Drug Screen Comment SEE NOTE Current Inpatient Medications Current Inpatient Medications: Current Inpatient Medications Acetaminophen (Acetaminophen 325 Mg Tab) 650 mg PO Q4H PRN PRN Reason: Headache or Minor Fever Stop: 08/01/20 14:39 Al Hydrox/Mg Hydrox/Simethicone (Aluminum/Magnesium Susp 30 Ml Udc) 30 ml PO Q4H PRN PRN Reason: GI Upset Stop: 08/01/20 14:39 Bismuth Subsalicylate (Bismuth Subsalicylate Liqd 236 Ml) 15 ml PO PRN PRN PRN Reason: Loose Stool Stop: 08/01/20 14:39 Hydroxyzine HCl (Hydroxyzine Hcl 25 Mg Tab) 50 mg PO HSZ PRN PRN Reason: Insomnia Stop: 08/01/20 14:39 Hydroxyzine HCl (Hydroxyzine Hcl 25 Mg Tab) 25 mg PO Q4H PRN PRN Reason: Anxiety Stop: 08/01/20 14:39 Magnesium Hydroxide (Magnesium Hydroxide Susp 30 Ml Udc) 30 ml PO DAILY PRN PRN Reason: Constipation Stop: 08/01/20 14:39 Sertraline HCl (Sertraline Hcl 50 Mg Tablet) 50 mg PO QAM MARIA TERESA Stop: 08/03/20 08:59 Last Admin: 07/05/20 09:11 Dose: 50 mg Documented by: Sodium Chloride (Sodium Chloride 0.65% Na Soln 45 Ml ([place])) 1 - 2 sprays NA PRN PRN PRN Reason: Nasal Dryness/Congestion Stop: 08/01/20 14:39 Mental Health & Subst Abuse Tx Therapist Name of Therapist: [facility] Therapist's Date of Therapist Appointment: 07/08/20 Time of Therapist Appointment: 9:00 a.m. Therapy Appointment Comment: Virtual - will email you link Window Shade Cutter Name of Window Shade Cutter: Tierney Curry from [facility] Post Discharge Appointments Primary Care Physician Name Of Family Doctor: Dr. Chuck Chilel [place] Contact Information Discharge Discharge Address: [address] [place] [address], [address] [address] (1) Depression Depression Type: major depressive disorder Major depression recurrence: recurrent Active/Remission status: currently active Major depression episode severity: severe Psychotic features: without psychotic features Qualified Code(s): F33.2 - Major depressive disorder, recurrent severe without psychotic features
[2020-07-06] MEDS ORDERED: SERTRALINE HCL 50 MG TABLET PO SCH (09:00)
--- NOTE | 2020-07-06 10:17 | Discharge Summary ---
Date of Service July 06, 2020 History of Present Illness Michael Padilla (DJ) is a 20-year-old male admitted involuntarily for inpatient psychiatric treatment on 07/02/2020 after being brought to the ED by EMS on a 302 warrant. Police were reportedly called to the patient's apartment after the patient had grabbed a pair of scissors and threatened to his friends that he would use them to slit his throat and end his life. ED documentation suggests the friends had gotten into an argument prior to these actions, and there was alcohol use involved. Pt's tox screen was positive for THC and his BAL was 194 on presentation, so patient was held in the ED until deemed clinically sober so that further evaluation could be completed and collateral information could be obtained. Mother provided reports of significant depression since "middle school" and admitted that patient is frequently reporting suicidal ideation, even when not intoxicated. She did not feel he was safe to be discharged. At time of mental health evaluation, the patient was continuing to endorse suicidal ideation and due to limited cooperation the 302 was reportedly upheld. 302 petitioning statement was completed by police and reads: "Patient had argument with friends and he felt that he wasn't wanted. Battles with history of depression. Patient felt like he did not want to live anymore. Patient grabbed a pair of scissors and told them he was going to kill himself. 911 was called. Officers arrived on scene and friends had male pinned to the floor. Male was hand cuffed. Told Officers to kill him and he wanted to . Male stated he had past history of suicide attempts and refused medication recommended by therapist. Males actions were violent and he appeared to have full intent to harm himself." Upon psychiatric evaluation, patient is very resistant to engage in conversation and appears very flat. Pt was observed to be laying in bed, and although he removed the blanket from his face he did not make eye contact. This provider attempted to ask questions for nearly 5 minutes before patient verbalized any audible response. Pt eventually was more willing to participate in conversation, and reported "Um, I had scissors and told my friends I was going to slit my throat. I guess that's what happened." Pt admitted that he had been drinking, but reported "I don't think it was so much the alcohol, I really felt like I wanted to hurt myself." Pt admits to increased depressive symptoms over the past 1-2 years, and states suicidal thoughts occur daily if not multiple times a day. We discussed the spectrum between passive and active thoughts, and patient was asked to describe the dialogue - "like, 'I want to end my life' thoughts." He admits that these thoughts can be triggered by difficult situations, but also "just pop up out of nowhere sometimes." The patient denies previous suicide attempts or acts of furtherance before last evening's events, but states he has a persistent plan to obtain "pain killers in combination with alcohol and benzodiazepines" to end his life. Pt denies immediate access to these substances, but states "I know how to get them." Pt reports persistently depressed mood, generally consistent for "weeks to months at a time." Depressive symptoms include: poor motivation, increased sleep, "negative thought loops", decreased appetite, anhedonia, and feeling "empty". The patient admits to a history of "really bad social anxiety", but feels that it is "not as bad as it used to be." Pt denies feeling the need to avoid leaving his apartment of other avoidance behaviors. Pt reports a history of panic attacks, but "none for years." Pt denies auditory/visual hallucinations, but does identify with "paranoia". He states "it feels like my friends are out to get me sometimes." He states this has only been a feeling more recently, and he does not elaborate on why this may be. Pt denies unhealthy eating behaviors, but does state "my mom thinks I have body dysmorphia". Pt, himself, feels he has "poor eating routine", but feels this is related primarily to his depressed mood. Pt admits to daily marijuana use and "binge drinking on weekends." He admits to an underage drinking charge from last fall. Pt reports a current significant stressor is that he was unable to enroll in classes for this semester due to a miscommunication regarding his remediation class related to the underage charge. Pt states that he withdrew from last semester due to mental health concerns, and was told he could complete the assignments with his outpatient therapist - but the University did not accept the letter "and my account was flagged and I couldn't sign up for classes." Pt states that he is willing to discuss medications that could improve his mood, but is interested in reviewing information before making a decision. Physical Exam Psychiatric Orientation: alert, oriented x 3 and cooperative Apperance: appropriately dressed, appropriately groomed and appeared stated age Eye Contact: good eye contact Motor Behavior: steady gait and station and no abnormal motor movements Speech: normal rate/rhythm/volume of speech Affect: euthymic affect and mood congruent with affect "A lot better." Thought Process: goal directed thought process and linear/logical thought process Thought Content: reality based without delusions Suicidal Thoughts: denies suicidal thoughts Homicidal Thoughts: denies homicidal thoughts Hallucinations: no auditory hallucinations and no visual hallucinations Cognition: recent memory grossly intact, attention grossly intact and language grossly intact Estimated Intelligence: consistent with education level Insight: good insight Judgement: good judgement Vital Signs (Past 24 Hours) Last Vital Signs Temp 36.5 C 07/06/20 09:58 Pulse 55 L 07/06/20 09:58 Resp 16 07/06/20 09:58 BP 146/72 H 07/06/20 09:58 Pulse Ox 98 07/06/20 09:58 Principal Diagnosis Major depressive disorder, recurrent, severe without psychosis Alcohol use disorder Cannabis use disorder Psychiatric Data Patient was hospitalized for 4 days. On admission, he was started on sertraline, which was titrated to 75 mg daily and was well-tolerated. He utilized hydroxyzine 50 mg for sleep, and felt it was helpful, requesting a prescription at discharge. He attended and participated in groups and therapy, and mood improved steadily throughout hospitalization, with resolution of suicidal thoughts. He had a family meeting with the director of social services and his parents on 07/04/2020, during which he was very open and honest with them about his depression and substance abuse. His father encouraged him to get substance abuse treatment, stating that he himself had gone to and realized that he could not even have just 1 drink of alcohol. Recommendation for intensive outpatient substance abuse treatment was discussed. They discussed the options for where he might live after discharge, and he ultimately decided to stay in [place] and get outpatient treatment, with a backup plan to return home to [place] with mother if he is unable to maintain stability. Academic issues were discussed, including that he needs to complete the BASICS course, which his mother has paid for, in order to reenroll. They discussed his difficulties in school, as he changed majors because he felt his initial major was too difficult for him. The importance of ongoing open communication with parents was stressed. He participated in recovery protocol and psychoeducation was provided about the risks of ongoing substance use and recommendations for substance abuse treatment. He was referred to [facility] for IOP, and to [facility] for medication management. Day of Discharge Assessment Staff report the patient has been attending and participating in groups and therapy, and socializing with peers in his free time. He rated his mood a 9/10 and described it as "satisfied." He completed his safety plan, and has been eating and sleeping well and tending to ADLs independently. On my assessment, he reports that his mood has improved significantly from admission, and denies suicidal thoughts. He is able to review his discharge safety plan, and feels he has good support from family. He denies side effects to medications, and thinks they are helping. We reviewed his discharge safety plan, including bridge psychiatric appointments at [facility] until his intake at [facility] in September. Transition of Care Transition Of Care Record: was reviewed with the patient Advance Directives Advance Directives Information Provided: Yes Advance Directives: No Mental Health Advance Directive: No Advance Directives on File: No Living Will: No Power of Radio Assembler: No Advance Directives Reason:: Declines as Mental Health Visit. Risk Factors Assessment Respecters mitigated by admission to the inpatient unit, use of medications to target mood symptoms, education about his diagnoses and the recommended treatment, recovery protocol/education about the risks of ongoing substance use and recommendations for IOP/abstinence from substances, family meeting with the director of social services, and referrals for outpatient care. Patient has demonstrated improved mood, resolution of suicidal thoughts, has been cooperative and engaged in treatment, and tending to ADLs independently. He is requesting discharge, and as he is no longer at acute risk of harm to himself, can be managed as an outpatient at this time. He does not have risk factors indicating increased risk of harm to others. Male: Yes : Yes Do You Have Access To A Gun?: No Health Problems: No Mental Health Diagnoses: Yes Substance Use Disorders: Yes Previous Attempt: No Family History of Suicide: Yes Previous Psychiatric Hospitalization: No Hopelessness: Yes Smoker: Yes Protective Factors Assessment Samaritan Beliefs: No : No Responsible for Young Children: No Employed: No Stable Relationships: Yes Supportive Family: Yes Good Rapport with Provider: No Tobacco Cessation at Discharge Tobacco Cessation Medication Prescribed at Discharge: Offered & Pt Refused (Patient has not needed nicotine replacement here) Practical counseling provided including: recognizing danger situations, developing coping skills and providing basic information about quitting Tobacco Cessation Outpatient Followup: Outpatient referral made to ([facility]) Total Time Total Time Spent: Greater Than 30 Minutes Total Time Includes: Examination of the patient, Discharge Planning and Medication Reconciliation Discharge Data Lab Results 07/02/20 07/02/20 07/02/20 06:49 06:49 06:49 WBC 25.05 H RBC 4.91 Hgb 14.6 Hct 41.9 L MCV 85.3 MCH 29.7 MCHC 34.8 RDW Std Deviation 41.9 RDW Coeff of Luna 13.4 Plt Count 292 MPV 11.6 H Immature Gran % (Auto) 0.3 Neut % (Auto) 80.4 Lymph % (Auto) 11.3 [place] % (Auto) 7.6 Eos % (Auto) 0.2 Baso % (Auto) 0.2 Neut # (Auto) 20.15 H Lymph # (Auto) 2.82 [place] # (Auto) 1.91 H Eos # (Auto) 0.05 Baso # (Auto) 0.04 Immature Gran # (Auto) 0.08 H Sodium 138 Potassium 3.6 Chloride 105 Carbon Dioxide 20 L Anion Gap 13.0 H BUN 10 Creatinine 1.20 Est Cr Clr Drug Dosing 106.3 Est GFR ( Amer) 100.3 Est GFR (Non-Af Amer) 86.5 BUN/Creatinine Ratio 8.1 L Glucose 90 Calcium 8.9 Total Bilirubin 0.3 AST 17 ALT 27 Alkaline Phosphatase 68 Total Protein 7.4 Albumin 4.1 Globulin 3.3 Albumin/Globulin Ratio 1.2 TSH 4.790 H Free T4 1.13 Urine Color Urine Appearance Urine pH Ur Specific [place] Urine Protein Urine Glucose (UA) Urine Ketones Urine Blood Urine Nitrite Urine Bilirubin Urine Urobilinogen Ur Leukocyte Esterase Salicylates < 1.7 L Urine Opiates Screen Ur Methadone, Qual Acetaminophen < 2 L Urine Barbiturates Ur Phencyclidine (PCP) U Amphetamin/Meth Scrn MDMA (Ecstasy) Screen U Benzodiazepines Scrn Ur Cocaine Metabolite U Marijuana (THC) Screen U Marijuana THC Carboxy Drug Screen Comment Ethyl Alcohol mg/dL SARS-CoV-2 Ag (Rapid) 07/02/20 07/02/20 07/02/20 06:49 07:31 07:45 WBC RBC Hgb Hct MCV MCH MCHC RDW Std Deviation RDW Coeff of Luna Plt Count MPV Immature Gran % (Auto) Neut % (Auto) Lymph % (Auto) [place] % (Auto) Eos % (Auto) Baso % (Auto) Neut # (Auto) Lymph # (Auto) [place] # (Auto) Eos # (Auto) Baso # (Auto) Immature Gran # (Auto) Sodium Potassium Chloride Carbon Dioxide Anion Gap BUN Creatinine Est Cr Clr Drug Dosing Est GFR ( Amer) Est GFR (Non-Af Amer) BUN/Creatinine Ratio Glucose Calcium Total Bilirubin AST ALT Alkaline Phosphatase Total Protein Albumin Globulin Albumin/Globulin Ratio TSH Free T4 Urine Color Yellow Urine Appearance Clear Urine pH 6.5 Ur Specific [place] 1.008 Urine Protein Negative Urine Glucose (UA) Negative Urine Ketones Negative Urine Blood Negative Urine Nitrite Negative Urine Bilirubin Negative Urine Urobilinogen Negative Ur Leukocyte Esterase Negative Salicylates Urine Opiates Screen Ur Methadone, Qual Acetaminophen Urine Barbiturates Ur Phencyclidine (PCP) U Amphetamin/Meth Scrn MDMA (Ecstasy) Screen U Benzodiazepines Scrn Ur Cocaine Metabolite U Marijuana (THC) Screen U Marijuana THC Carboxy Drug Screen Comment Ethyl Alcohol mg/dL 194.0 H SARS-CoV-2 Ag (Rapid) Negative 07/02/20 07/02/20 07:45 07:45 WBC RBC Hgb Hct MCV MCH MCHC RDW Std Deviation RDW Coeff of Luna Plt Count MPV Immature Gran % (Auto) Neut % (Auto) Lymph % (Auto) [place] % (Auto) Eos % (Auto) Baso % (Auto) Neut # (Auto) Lymph # (Auto) [place] # (Auto) Eos # (Auto) Baso # (Auto) Immature Gran # (Auto) Sodium Potassium Chloride Carbon Dioxide Anion Gap BUN Creatinine Est Cr Clr Drug Dosing Est GFR ( Amer) Est GFR (Non-Af Amer) BUN/Creatinine Ratio Glucose Calcium Total Bilirubin AST ALT Alkaline Phosphatase Total Protein Albumin Globulin Albumin/Globulin Ratio TSH Free T4 Urine Color Urine Appearance Urine pH Ur Specific [place] Urine Protein Urine Glucose (UA) Urine Ketones Urine Blood Urine Nitrite Urine Bilirubin Urine Urobilinogen Ur Leukocyte Esterase Salicylates Urine Opiates Screen Neg Ur Methadone, Qual Neg Acetaminophen Urine Barbiturates Neg Ur Phencyclidine (PCP) Neg U Amphetamin/Meth Scrn Neg MDMA (Ecstasy) Screen Neg U Benzodiazepines Scrn Neg Ur Cocaine Metabolite Neg U Marijuana (THC) Screen Pos H U Marijuana THC Carboxy 284 H Drug Screen Comment SEE NOTE Ethyl Alcohol mg/dL SARS-CoV-2 Ag (Rapid) Hospital Course (1) Suicidal ideations: 07/02 - Admitted to a locked inpatient behavioral health unit, on q15 minute safety checks - Encourage medication initiation/adjustments as indicated - Encourage participation in group and recreational therapies - Gather collateral information from outpatient providers - Suggest family meeting to involve outpatient supports in safety planning - Arrange appropriate aftercare 07/04 -Family meeting with director of social services and parents today. Patient trying to decide whether to remain in [place] or return home to [place]. 07/05 -Patient and his family have decided that he will stay in [place], they are arranging local aftercare. (2) Depression: 07/02 - Symptoms reported by patient at this time seem most consistent with major depressive disorder. Differential includes substance-induced mood disorder, dysthymia, or possible bipolar disorder (only previous medication trial was a mood stabilization agent). Will continue to gather information from patient and outside supports - Pt was offered a trial of an SSRI to target depressive symptoms - sertraline and fluoxetine were reviewed and patient requested additional information before deciding on an agent. He was provided with patient education handouts and is agreeing to follow-up with a provider tomorrow. - Encourage engagement in group programming and assist with development of healthy and effective coping strategies - Pt will need a family meeting, likely involving his mother 07/03 -Again reviewed diagnosis and treatment recommendations, discussed multiple SSRIs including risks, benefits, and side effects, he ultimately agreed to a trial of sertraline. Start 25 mg daily, increase to 50 mg daily tomorrow. -Family meeting with mother scheduled for tomorrow. 07/04 -Increase sertraline to 50 mg daily. He will need referral for outpatient treatment either here or in [place], depending on where he decides to live after discharge. 07/05 -Increase sertraline to 75 mg daily. Referred to [facility] with intake 07/08/2020, and referred to [facility] for medication management. -Continue to work on healthy coping skills, ways to increase daily structure, and discharge safety plan. 07/06 -First appointment at [facility] is not until 09/22/2020, so I will see him in the interim at [facility] with an initial appointment 07/13/2020 at 1245. (3) Cannabis abuse: 07/02 - Reporting use of marijuana several times a day - Consider outpatient D&A counseling 07/04 -To be referred for dual diagnosis outpatient treatment once we know where he will be living. -Continue recovery protocol. 07/05 -Patient plans to stay in [place], referred to [facility] for IOP, with initial assessment 07/08/2020. Mental Health & Subst Abuse Tx Psychiatrist Name [facility] Psychiatrist: [facility] Date of Appointment with Psychiatrist: 09/22/20 Time of Appointment with Psychiatrist: 1:40 p.m. Psychiatric Appointment Comment: [facility] Therapist [facility] Date of Therapist Appointment: 07/08/20 Time of Therapist Appointment: 9:00 a.m. Therapy Appointment Comment: Virtual - will email you link Software Security Architect Name of Software Security Architect: [facility] Phone Number for Software Security Architect: [phone] Case Management Appointment Comment: Follow up as needed Post Discharge Appointments Primary Care Physician Name Of Family Doctor: Obtain a PCP when you believe it to be necessary Provider Appointment Comment: [facility] Specialist Name of Specialist: Dr. Morel - psychiatrist at [facility] Phone Number for Specialist: [phone] Date of Appointment with Specialist: 07/13/20 Time of Appointment with Specialist: 12:45 Specialty Appointment Comment: bridge appointments until your intake at [facility] in September Smoking Cessation Counseling Tobacco Cessation Medication Prescribed at Discharge: Offered & Pt Refused (Patient has not needed nicotine replacement here) Contact Information Discharge Discharge Address: [address] [place] [address], [facility] [address], [place] [address] Discharge Plan Discharge Items Patient Disposition: Home - Self-Care Reason For Visit: MOOD DISORDER,NOS Discharge Diagnosis: Major depressive disorder Activity: Per Instructions section Non-emergency contact: Psychiatrist and Therapist Call non-emergency contact if: you have any medication questions and your symptoms worsen Follow-up/Referrals: PCP,NO [Primary Care Provider] - Diet: Regular Addtl Attending Provider Instructions: SPECIAL CARE INSTRUCTIONS: 1. Follow through with your scheduled aftercare appointments. If unable to keep an appointment, please call to reschedule. 2. Take your medication only as prescribed. Medication should not be changed or stopped without the approval of your doctor. In the event of worsening symptoms or concerns about side effects, contact your doctor immediately. 3. Utilize new healthy coping skills, anger management skills, and stress management skills learned during your hospitalization. Journal feelings and process them with a support person. Identify stressors or situations that may result in relapse, deterioration or inappropriate behaviors and develop a plan to deal with those issues. 4. If your coping skills are ineffective and you are in crisis, contact your outpatient providers for direction. If unable to reach your providers, please call the [facility] CRISIS LINE AT , go to the [facility] walk-in center at [address] [place] [address] A, [place], or go to the closest Emergency Room. 5. Avoid alcohol and un-prescribed drugs. 6. You have been provided with the Mental Health Advance Directives Pamphlet for your review. AFTERCARE APPOINTMENTS: * Please call your insurance company prior to your scheduled appointment to confirm your aftercare providers are covered. Take your insurance information to your appointments. WHO TO CALL AND WHEN: Medical Emergencies: For questions or emergencies related to your hospital stay, please contact the Inpatient Behavioral Health Unit at [phone]. A psychiatric nursing aide is on-call 27/11 for the Behavioral Health Unit for emergencies At any time you feel your situation is an emergency, you may also call [phone] immediately. Pending Studies at Discharge: No Stand-Alone Forms: [facility], Smoking Cessation Medications and DC Order Prescriptions: New sertraline 50 mg Tablet 75 mg PO QAM Qty: 45 RF: 0 hydroxyzine HCl 50 mg tablet 50 mg PO HS PRN (Reason: insomnia) Qty: 30 RF: 0 No Action No Known Home Medications RF: 0 Discharge Orders: Discharge Order (Routine); Ordered 07/06/20 Ordered By: Maira Morel Admission Data Admit Date/Time: 07/02/20 14:40 Attending Provider: Chuck Castelan Admit Provider: Chuck Castelan Primary Care Provider: PCP,NO Other Interventions: Discharge Summary Assessment (RN) Last Done: 07/06/20 09:58 PSY Interdisciplinary Discharge Planning Last Done: 07/06/20 10:01 Coding Level of Care Code 90155 D/C day mgmt > 30 min Diagnoses Suicidal ideations R45.851 Depression F33.2 Depression Type: major depressive disorder Major depression recurrence: recurrent Active/Remission status: currently active Major depression episode severity: severe Psychotic features: without psychotic features Cannabis abuse F12.10
== END 2020-07-06 13:56 | disposition home or self-care (01) | DRG 885 ==
LOC: ED 06:13 → 3S 14:40